=== PATIENT | male | born 1950 | race Caucasian/White ===

== ENCOUNTER 2016-11-25 19:34 | Emergency (ER) | payer MEDICARE, OTHER ==
[~2016-11-25] VITALS: Ht 195.6 cm; Wt 144.5 kg
[2016-11-25] MEDS ORDERED: HYDROCODONE BIT1 T44 PO (19:47)
[2016-11-25] MEDS ORDERED: LISINOPRIL10 MG PO (19:47)
[2016-11-25] MEDS ORDERED: MIRALAX17 GM PO (19:48)
[2016-11-25] MEDS ORDERED: MULTIVITAMIN1 SGL PO (19:48)
[2016-11-25] MEDS ORDERED: MUCINEX 60600 MG/TA1 PO (19:49)
[2016-11-25 21:58] VITALS: BP 160/84
== END 2016-11-25 21:58 | disposition home or self-care (01) ==
LOC: ED 19:34
DX: K59.00 Constipation, unspecified (principal)

== ENCOUNTER → 2018-01-08 | Outpatient (CLI) | payer MEDICARE, OTHER ==
[~2018-01-08] MED LIST: HYDROCODONE BIT1 T44 PO; LISINOPRIL10 MG PO; MIRALAX17 GM PO; MUCINEX 60600 MG/TA1 PO; MULTIVITAMIN1 SGL PO
[2018-01-08 09:42] LABS: BUN/CREATININE RATIO 12.4 (6.0-26.0); CALCIUM 9.3 mg/dL (8.4-10.2)
[2018-01-09 02:41] LABS: CORTISOL, AM (0800) 11 ug/dL (3-20); FOLLICLE STIMULATING HORMONE 6.5 mIU/mL (1.0-12.0); LUTENIZING HORMONE 4.6 mIU/mL (0.6-12.1); PROLACTIN 8.6 ng/mL (3.5-19.4); TESTOSTERONE 212 ng/dL (221-716)
[2018-01-10 13:52] LABS: ADRENOCORTICOTROPIC HORMONE 28 pg/mL (())
[2018-01-12 09:39] LABS: SEX HORMONE BINDING GLOBULIN 21 nmol/L (10-57)
[2018-01-12 11:50] LABS: INSULIN-LIKE GROWTH FACTOR I 130 ng/mL (32-209)
== END ==
LOC: LAB 07:55
DX: D35.2 Benign neoplasm of pituitary gland (principal)

== ENCOUNTER 2018-01-21 08:30 | Outpatient (RCR) | payer MEDICARE, OTHER | END 2018-03-29 | disposition home or self-care (01) | LOC: PT | DX: M25.561 Pain in right knee (principal); R25.2 Cramp and spasm; M23.51 Chronic instability of knee, right knee; M54.42 Lumbago with sciatica, left side; Z96.651 Presence of right artificial knee joint; R29.6 Repeated falls; Z86.39 Personal history of other endocrine, nutritional and metabolic disease; Z98.890 Other specified postprocedural states | CPT/HCPCS: G8978-GP; G8979-GP ==

== ENCOUNTER → 2018-01-22 | Outpatient (CLI) | payer MEDICARE, OTHER ==
[2018-01-22 10:38] LABS: ALBUMIN 4.1 g/dL (3.5-5.0); BUN/CREATININE RATIO 12.4 (6.0-26.0); POTASSIUM 4.4 mmol/L (3.6-5.0); TOTAL BILIRUBIN 0.4 mg/dL (0.2-1.3); TOTAL PROTEIN 7.3 g/dL (6.3-8.2)
== END ==
LOC: RAD 09:49
PROVIDERS: Family Medicine
DX: K59.00 Constipation, unspecified (principal); M54.9 Dorsalgia, unspecified; I10 Essential (primary) hypertension; I25.10 Atherosclerotic heart disease of native coronary artery without angina pectoris; E78.1 Pure hyperglyceridemia

== ENCOUNTER → 2018-02-09 | Outpatient (CLI) | payer MEDICARE, OTHER ==
[2018-02-09 16:36] LABS: HEMATOCRIT 46.2 % (42.0-52.0); HEMOGLOBIN 15.2 g/dL (13.5-18.0); MEAN PLATELET VOLUME 9.6 fl (7.4-10.4); RED BLOOD COUNT 5.19 M/mm3 (4.20-5.60); WHITE BLOOD COUNT 5.6 K/mm3 (4.8-10.8)
[2018-02-09 16:48] LABS: ALBUMIN 3.9 g/dL (3.5-5.0); BUN/CREATININE RATIO 15.2 (6.0-26.0); CALCIUM 9.3 mg/dL (8.4-10.2); POTASSIUM 4.4 mmol/L (3.6-5.0); TOTAL BILIRUBIN 0.5 mg/dL (0.2-1.3); TOTAL PROTEIN 6.6 g/dL (6.3-8.2)
== END ==
LOC: LAB 16:12
PROVIDERS: Family Medicine
DX: G62.9 Polyneuropathy, unspecified (principal); R63.5 Abnormal weight gain

== ENCOUNTER → 2018-03-02 | Outpatient (CLI) | payer MEDICARE, OTHER ==
[2018-03-03 00:57] LABS: T3 TOTAL 76 ng/dL (87-178)
== END ==
LOC: LAB 08:09
PROVIDERS: Family Medicine
DX: M54.16 Radiculopathy, lumbar region (principal); R63.5 Abnormal weight gain; G62.9 Polyneuropathy, unspecified; Z98.1 Arthrodesis status

== ENCOUNTER → 2018-12-14 | Outpatient (CLI) | payer MEDICARE, OTHER | LOC: LAB 15:52 | DX: B00.1 Herpesviral vesicular dermatitis (principal); Q38.5 Congenital malformations of palate, not elsewhere classified ==

== ENCOUNTER 2018-12-17 08:30 | Outpatient (RCR) | payer MEDICARE, OTHER | END 2018-12-17 09:00 | disposition still patient (30) | LOC: PT 08:30 | DX: M25.511 Pain in right shoulder (principal); M25.512 Pain in left shoulder; J45.30 Mild persistent asthma, uncomplicated; R09.81 Nasal congestion ==

== ENCOUNTER 2018-12-17 09:00 | Outpatient (RCR) | payer MEDICARE, OTHER | END 2018-12-17 09:30 | disposition still patient (30) | LOC: PT 09:00 | DX: M48.062 Spinal stenosis, lumbar region with neurogenic claudication (principal) ==

== ENCOUNTER 2019-04-02 10:00 | Outpatient (RCR) | payer MEDICARE, OTHER | END 2019-04-02 10:30 | disposition still patient (30) | LOC: PT 10:00 | DX: M79.605 Pain in left leg (principal); Z98.1 Arthrodesis status ==

== ENCOUNTER → 2019-07-06 | Outpatient (RCR) | payer MEDICARE, OTHER | END | disposition still patient (30) | LOC: PT | DX: T84.84XA Pain due to internal orthopedic prosthetic devices, implants and grafts, initial encounter (principal); M79.605 Pain in left leg; Z96.651 Presence of right artificial knee joint; Z98.1 Arthrodesis status ==

== ENCOUNTER 2024-03-09 12:57 | Outpatient (RCR) | payer MEDICARE, OTHER ==
[~2024-03-09 12:57] MED LIST changes: +ROSUVASTATIN CA20 MG PO
== END 2024-04-05 | disposition home or self-care (01) ==
LOC: PT
DX: M51.37 Other intervertebral disc degeneration, lumbosacral region (principal); M47.819 Spondylosis without myelopathy or radiculopathy, site unspecified; M54.16 Radiculopathy, lumbar region

== ENCOUNTER 2024-03-09 13:00 | Outpatient (RCR) | payer MEDICARE, OTHER | END 2024-04-05 | disposition home or self-care (01) | LOC: PT | DX: M54.2 Cervicalgia (principal) ==